=== PATIENT | male | born 1955 | race African-American/Black ===

== ENCOUNTER 2017-03-20 14:22 | Emergency (ER) | payer MEDICAID, OTHER ==
[~2017-03-20] VITALS: Ht 193 cm; Wt 74.8 kg
[~2017-03-20 14:22] MED LIST: ALPRAZOLAM0.5 MG PO; ASPIRIN EC325 MG ORAL; Aspirin ORAL; NKM; norvasc ORAL
[2017-03-20] MEDS ORDERED: Tetracaine 0.5% Opth 4ml Soln LEFT EYE ONE (14:45)
[2017-03-20] MEDS ORDERED: Fluorescein Strips LEFT EYE ONE (14:45)
[2017-03-20 15:05] VITALS: BP 135/72
--- NOTE | 2017-03-20 15:17 | Emergency Room Report ---
History of Present Illness General Chief Complaint: Eye Problems Source: Patient Present Illness HPI 61 YO Male presents to the ED C/O left eye irritation and increased lacrimation with fb scratching sensation causing 10/10 in severity pain x 2 days. pt. reports yesterday a fan blew dust/dirt into his eyes, and he was rubbing his eye and believes he may have scratched it. pt. reports later rinsing profusely with tap water multiple times yet still feels as though something is in his eye scratching. pt. denies visual changes, denies vision loss, floaters, flashing lights, swelling of the lid, or eye d/c. pt. reports increased tearing and photophobia. He denies contact lens use. Allergies: Coded Allergies: No Known Allergies (Unverified , 02/23/14) Patient History Past Medical History: see triage record Past Surgical History: none Pertinent Family History: none Immunizations: UTD Reviewed Nursing Documentation: PMH: Agreed, PSxH: Agreed Nursing Documentation-PMH Past Medical History: No History, Except For Hx Hypertension: Yes Hx Diabetes: Yes Review of Systems All Other Systems: negative except mentioned in HPI Physical Exam Vital Signs Date Time Temp Pulse Resp B/P (MAP) Pulse Ox O2 Delivery O2 Flow Rate FiO2 03/20/17 14:29 98.1 72 17 124/75 98 Room Air Sp02 EP Interpretation: reviewed, normal General Appearance: no apparent distress, alert, GCS 15, non-toxic Head: normocephalic, atraumatic Eyes: left eye fluoroscene uptake - linear increased uptake in the 8 o'clock position, bilateral eye normal inspection, bilateral eye PERRL, bilateral eye EOMI ENT: hearing grossly normal, normal pharynx, no angioedema, normal voice Neck: full range of motion, supple/symm/no masses Respiratory: chest non-tender, lungs clear, normal breath sounds, speaking full sentences Cardiovascular #1: regular rate, rhythm, no edema Cardiovascular #2: 2+ carotid (R), 2+ carotid (L), 2+ radial (R), 2+ radial (L) , 2+ dorsalis pedis (R), 2+ dorsalis pedis (L) Gastrointestinal: normal bowel sounds, non tender, soft, no guarding, no rebound Rectal: deferred Genitourinary: normal inspection, no CVA tenderness Musculoskeletal: back normal, gait/station normal, normal range of motion, non- tender, no calf tenderness Neurologic: alert, oriented x3, responsive, motor strength/tone normal, sensory intact, speech normal Psychiatric: judgement/insight normal, memory normal, mood/affect normal, no suicidal/homicidal ideation Reflexes: 4+ bicep (R), 4+ bicep (L), 4+ tricep (R), 4+ tricep (L), 4+ knee (R) , 4+ knee (L) Skin: normal color, no rash, warm/dry, well hydrated Lymphatic: no adenopathy Medical Decision Making PA Attestation Dr. Mackenzie is my supervising Physician whom patient management has been discussed with. Diagnostic Impression: Primary Impression: Corneal abrasion, left Qualified Codes: S05.02XA - Injury of conjunctiva and corneal abrasion without foreign body, left eye, initial encounter ER Course 61 YO Male presents to the ED C/O left eye irritation and increased lacrimation with fb scratching sensation causing 10/10 in severity pain x 2 days. pt. reports yesterday a fan blew dust/dirt into his eyes, and he was rubbing his eye and believes he may have scratched it. pt. reports later rinsing profusely with tap water multiple times yet still feels as though something is in his eye scratching. pt. denies visual changes, denies vision loss, floaters, flashing lights, swelling of the lid, or eye d/c. pt. reports increased tearing and photophobia. He denies contact lens use. - Pt denies contact lens use. Ddx considered but are not limited to: corneal abrasion, acute glaucoma, globe rupture, FB, Corneal Ulcer, conjunctivitis. Iridis Vital signs: are WNL, pt. is afebrile H&PE are most consistent with: corneal abrasion , no obvious fb's seen on lid flip examination. ORDERS: -Tetracaine and Fluorescein Stain of the Left eye: -Increase fluorescein uptake in a linear fashion in the 8 o'cloock position of the Left eye, there is no involvement of the iris or pupil. Negative Jarred sign. Pt. had positive relief of pain with tetracaine drops. there was negative evidence of Fb, deep ulcer, or rupture. ED INTERVENTIONS: none at this time. d/w pt. Opth fU in 48 hours. DISCHARGE: At this time pt. is stable for d/c to home. Will provide printed patient care instructions, and any necessary prescriptions. Care plan and follow up instructions have been discussed with the patient prior to discharge. . Last Vital Signs Date Time Temp Pulse Resp B/P (MAP) Pulse Ox O2 Delivery O2 Flow Rate FiO2 03/20/17 14:29 98.1 72 17 124/75 98 Room Air Disposition: HOME, SELF-CARE Condition: Stable Scripts Sod Borate/Boric AC/Water/NaCl (Eye Wash Irrigating Solution) 120 Ml Irrig.soln 118 ML OP ONCE, #118 ML Prov: Breann Walton 03/20/17 Diclofenac Sodium (DICLOFENAC SODIUM*) 2.5 Ml Drops 1 DROP LEFT EYE QID, #2.5 ML 0 Refills Prov: Breann Walton 03/20/17 Ofloxacin (OCUFLOX) 5 Ml Drops 1 DRP OP BID, #5 ML Prov: Breann Walton 03/20/17 Referrals: [facility],REFERRING (PCP) Patient Instructions: Corneal Abrasion Additional Instructions: Take medications as directed. Follow up with a Primary Care Provider in 48-72 hours, even if your symptoms have resolved. --Please review list of primary care clinics, if you do not already have a primary care provider Return sooner to ED if new symptoms occur, or current symptoms become worse. - Please note that this Emergency Department Report was dictated using [employer] vmware administrator technology software, occasionally this can lead to erroneous entry secondary to interpretation by the dictation equipment. Breann Walton Mar 20, 2017 15:17
[2017-03-20] MEDS ORDERED: DICLOFENAC SOD2.5 ML LEFT EYE (15:32)
[2017-03-20] MEDS ORDERED: EYE WASH IRRIG118 ML OP (15:32)
[2017-03-20] MEDS ORDERED: OCUFLOX5 ML OP (15:32)
[2017-03-20 17:39] VITALS: BP 135/72
== END 2017-03-20 17:00 | disposition home or self-care (01) ==
LOC: EMR 14:58
DX: T15.02XA Foreign body in cornea, left eye, initial encounter (principal); X58.XXXA Exposure to other specified factors, initial encounter; Y92.9 Unspecified place or not applicable; I10 Essential (primary) hypertension; E11.9 Type 2 diabetes mellitus without complications
CPT/HCPCS: 99284

== ENCOUNTER 2017-11-08 13:12 | Emergency (ER) | payer OTHER ==
[~2017-11-08] VITALS: Ht 193 cm; Wt 77.1 kg
[~2017-11-08 13:12] MED LIST changes: +DICLOFENAC SOD2.5 ML LEFT EYE; +EYE WASH IRRIG118 ML OP; +OCUFLOX5 ML OP
[2017-11-08 13:40] VITALS: BP 123/83
[2017-11-08] MEDS ORDERED: Isovue-300 100ml vial INJ PRN (14:00)
--- NOTE | 2017-11-08 14:09 | Emergency Room Report ---
History of Present Illness General Chief Complaint: Male Urogenital Problems Source: Patient Present Illness HPI pt is a 61 y.o. M with hx of BPH, on tamsulosin, low back pain, currently on daily dose of norco for the past 4 days, here c/o waking up this AM with dysuria and gross hematuria. pt denies n/v/d/c, sob cp, fever/chills. he also c/ o right lower quandrant pain, with no radiation, 12/25, denying flank pain and hx of renal stones. denies trauma, fall, erectile dysfunction. Allergies: Coded Allergies: No Known Allergies (Unverified , 02/23/14) Patient History Past Medical History: see triage record Past Surgical History: none Pertinent Family History: unable to obtain Immunizations: UTD Reviewed Nursing Documentation: PMH: Agreed; PSxH: Agreed Nursing Documentation-PMH Past Medical History: No History, Except For Hx Hypertension: Yes Hx Diabetes: Yes History Of Psychiatric Problem: Yes - ANXIETY Review of Systems All Other Systems: negative except mentioned in HPI Physical Exam Vital Signs Date Time Temp Pulse Resp B/P (MAP) Pulse Ox O2 Delivery O2 Flow Rate FiO2 11/08/17 13:29 98.3 70 16 123/83 99 Room Air 98.2 Sp02 EP Interpretation: reviewed General Appearance: alert, GCS 15, non-toxic, mild distress Head: normocephalic, atraumatic Eyes: bilateral eye normal inspection, bilateral eye PERRL ENT: normal ENT inspection, hearing grossly normal, normal pharynx Neck: normal inspection, full range of motion, supple Respiratory: normal inspection, chest non-tender, lungs clear, normal breath sounds, no rhonchi, no respiratory distress, no retraction, no accessory muscle use Cardiovascular #1: normal inspection, normal peripheral pulses, regular rate, rhythm, no edema, no gallop, no JVD, no murmur, no rub Cardiovascular #2: 2+ radial (R), 2+ radial (L) Gastrointestinal: normal bowel sounds, no mass, no organomegaly, no bruit, non- distended, no pulsatile mass, no rebound, guarding - right lower quadrant, other Medical Decision Making PA Attestation all orders, dx, tx plans were reviewed with my supervising physician Dr Reid Diagnostic Impression: Primary Impression: Pyelonephritis Additional Impression: Renal stone ER Course pt is a 61 y.o. M with hx of BPH, on tamsulosin, low back pain, currently on daily dose of norco for the past 4 days, here c/o waking up this AM with dysuria and gross hematuria. pt denies n/v/d/c, sob cp, fever/chills. he also c/ o right lower quandrant pain, with no radiation, 12/25, denying flank pain and hx of renal stones. denies trauma, fall, erectile dysfunction. Ddx considered but are not limited to pylonephritis, renal stone, bladder carcinoma Vital signs: are WNL, pt. is afebrile H&PE are most consistent with pyloneprhitis and renal stone ORDERS: CBC, UA, CMP, abd CT w/o contrast, toradol 30mg,IM , keflex 500mg qid x10d ED INTERVENTIONS: toradol 30mg IM , NS DISCHARGE: At this time pt. is stable for d/c to home. Will provide printed patient care instructions, and any necessary prescriptions. Care plan and follow up instructions have been discussed with the patient prior to discharge. UA blood 3+, Hgb 12, Hct38, urine protein 2+, 2+ leuk, AST and ALT 138-148 Lab Results Impression gross hematuria, mild anemia, elevated liver enzymes and pylonephritis CT/MRI/US Diagnostic Results CT/MRI/US Diagnostic Results : Imaging Test Ordered: CT abdomien and pelvis w/o contrast Impression CT ABDOMEN & PELVIS Without Contrast: 1. 6 mm hyperdense cyst versus nonobstructive stone in the mid left kidney ( series 6 image 51). Mild left perinephric stranding. No hydronephrosis or hydroureter. 2. Mild constipation. 3. Grade 1 anterolisthesis of L4 relative to L5 with 4 mm offset. 4. Grade 1 retrolisthesis of L5 relative to S1 with 5 mm offset. 5. Mild multilevel degenerative changes throughout the spine, most prominent at L5-S1. Last Vital Signs Date Time Temp Pulse Resp B/P (MAP) Pulse Ox O2 Delivery O2 Flow Rate FiO2 11/08/17 13:40 98.2 88 16 123/83 99 Room Air 98.2 Status: improved Disposition: HOME, SELF-CARE Condition: Stable Scripts Cephalexin* (KEFLEX*) 500 Mg Capsule 500 MG ORAL EVERY 6 HOURS for 10 Days, #40 CAP Prov: Saud Finch 11/08/17 Patient Instructions: Pyelonephritis, Adult, Renal Colic Additional Instructions: follow up with urologist and primary dr. take abx as directed. if fever/chills return to ED> Saud Finch Nov 08, 2017 14:09
[2017-11-08] MEDS ORDERED: Ketorolac 30mg Inj IM ONE (14:30)
[2017-11-08 14:37] LABS: APPEARANCE,URINE SLIGHTLY CLOUDY; BILIRUBIN, URINE NEGATIVE (NEGATIVE); GLUCOSE, URINE (UA) NEGATIVE (NEGATIVE); KETONES,URINE NEGATIVE (NEGATIVE); LEUKOCYTE ESTERASE ,URINE 2+ (NEGATIVE); PH,URINE 6 (4.5-8.0); PROTEIN,URINE 2+ (NEGATIVE); UROBILINOGEN,URINE 4 MG/DL (0.0-1.0)
[2017-11-08 14:40] LABS: BASOPHILS % (AUTO) 0.7 % (0.0-2.0); EOSINOPHILS % (AUTO) 0.4 % (0.0-3.0); HEMATOCRIT 38.1 % (42.0-52.0); HEMOGLOBIN 12.8 G/DL (14.2-18.0); LYMPHOCYTES % (AUTO) 22.9 % (20.0-45.0); MEAN CORPUSCULAR VOLUME 93 FL (80-99); MONOCYTES % (AUTO) 15.1 % (1.0-10.0); NEUTROPHILS % (AUTO) 60.9 % (45.0-75.0); PLATELET COUNT 145 K/UL (150-450); RED BLOOD COUNT 4.09 M/UL (4.70-6.10); RED CELL DISTRIBUTION WIDTH 11.1 % (11.6-14.8)
[2017-11-08 14:43] LABS: ANION GAP 6 mmol/L (5-15); BLOOD UREA NITROGEN 9 mg/dL (7-18); CALCIUM 8.8 MG/DL (8.5-10.1); CARBON DIOXIDE 30 MMOL/L (21-32); CHLORIDE 98 MMOL/L (98-107); POTASSIUM 4.1 MMOL/L (3.5-5.1); SODIUM 133 MMOL/L (136-145)
[2017-11-08 14:49] LABS: COLOR,URINE RED; NITRITE,URINE NEGATIVE (NEGATIVE)
[2017-11-08 14:53] LABS: ALANINE AMINOTRANSFERASE 138 U/L (12-78); ALBUMIN 3.2 G/DL (3.4-5.0); ALBUMIN/GLOBULIN RATIO 0.7 (1.0-2.7); ALKALINE PHOSPHATASE 105 U/L (46-116); ASPARTATE AMINO TRANSFERASE 137 U/L (15-37); BILIRUBIN,TOTAL 1.9 MG/DL (0.2-1.0)
[2017-11-08] MEDS ORDERED: CEPHALEXIN500 MG ORAL (15:29)
[2017-11-08 15:41] VITALS: BP 123/83
--- NOTE | 2017-11-09 17:07 | Diagnostic Imaging Report ---
Indication: Abdominal pain Technique: Spiral acquisitions obtained through the abdomen and pelvis. No oral contrast utilized, per emergency room physician request No IV contrast utilized, per referring physician request.. Multiplanar reconstructions were generated. Total dose length product 549.55 mGycm. CTDIvol(s) 11.19 mGy. Dose reduction achieved using automated exposure control Comparison: None Findings: No evidence of diverticulosis or diverticulitis. The appendix is normal. No small bowel distention. No free or loculated intraperitoneal air or fluid. Distal esophagus, stomach, duodenum are unremarkable. Lack of IV contrast limits assessment of the solid organs. The liver is grossly unremarkable. The gallbladder is unremarkable. There is mild ectasia of the common hepatic duct, which measures up to 9 mm in diameter, as well as central intrahepatic biliary ductal dilatation, but no downstream obstructive lesion is identified. The pancreas, spleen, adrenals are all unremarkable. Area of probable tubular calcification hyperdense cyst is seen in the central portion of the left kidney. The kidneys are otherwise unremarkable. No retroperitoneal or mesenteric mass or adenopathy. No pelvic mass or adenopathy. The bladder is equivocally mildly thick-walled, probably an artifact of under distention. The lung bases demonstrate some scarring bilaterally. The bones demonstrate mild degenerative spondylosis changes. Impression: Ectatic bile ducts, without definite downstream obstructive lesion. Correlate with liver function tests No definite acute or significant abnormality Equivocally mildly thick-walled bladder, probably an artifact of under distention Degenerative spondylosis Left renal hyperdense cyst versus focus of tubular calcification This agrees with the preliminary interpretation provided overnight by [facility] teleradiology service. The CT scanner at [facility] is accredited by the [employer] and the scans are performed using protocols designed to limit radiation exposure to as low as reasonably achievable to attain images of sufficient resolution adequate for diagnostic evaluation.
== END 2017-11-08 16:30 | disposition home or self-care (01) ==
LOC: EMR 16:26
DX: N12 Tubulo-interstitial nephritis, not specified as acute or chronic (principal); N20.0 Calculus of kidney; R31.0 Gross hematuria; I10 Essential (primary) hypertension; E11.9 Type 2 diabetes mellitus without complications; F41.9 Anxiety disorder, unspecified
CPT/HCPCS: 36415; 74176; 80053; 81003; 82248; 83690; 85025; 96372; 99284; J1885

== ENCOUNTER 2019-10-04 11:11 | Emergency (ER) | payer OTHER ==
[~2019-10-04] VITALS: Ht 193 cm; Wt 77.1 kg
[~2019-10-04 11:11] MED LIST changes: +CEPHALEXIN500 MG ORAL
--- NOTE | 2019-10-04 11:15 | NUR ---
ED Nurse Note: Pt ambulated to ed c/o right lower qudarant pain radiating to lower back x 1 week. pt states that he does drink a lot of alcohol. pt denies nausea, vomiting, diarrhea. pt right lower quadrant abdomen tender to touch.
[2019-10-04] MEDS ORDERED: Morphine Sulfate 2mg/ml Inj(IV/IM USE ONLY) ONE (11:36)
--- NOTE | 2019-10-04 11:40 | Emergency Room Report ---
History of Present Illness General Chief Complaint: Abdominal Pain Source: Patient Present Illness HPI 63-year-old male presents the ED complaining of abdominal pain. Started 10 days ago. Pain is right lower quadrant. 10 out of 10, sharp, radiating to back. Denies chest pain or shortness of breath. Denies diarrhea. Notes nausea , denies vomiting. No other aggravating relieving factors. Denies any other associated symptoms Allergies: Coded Allergies: No Known Allergies (Unverified , 02/23/14) COVID-19 Screening Contact w/high risk pt: No Recent Travel to affected area: No Experienced COVID-19 symptoms?: No COVID-19 Testing performed MACHINE COREMAKER: No Patient History Past Medical History: DM, HTN Past Surgical History: none Pertinent Family History: none Social History: Denies: smoking, alcohol use, drug use Immunizations: UTD Reviewed Nursing Documentation: PMH: Agreed; PSxH: Agreed Nursing Documentation-PMH Hx Hypertension: Yes Hx Diabetes: Yes Review of Systems All Other Systems: negative except mentioned in HPI Physical Exam Vital Signs Date Time Temp Pulse Resp B/P (MAP) Pulse Ox O2 Delivery O2 Flow Rate FiO2 10/04/19 11:14 98.1 74 18 117/82 (94) 99 Room Air Sp02 EP Interpretation: reviewed, normal General Appearance: no apparent distress, alert, GCS 15, non-toxic Head: normocephalic, atraumatic Eyes: bilateral eye normal inspection, bilateral eye PERRL ENT: hearing grossly normal, normal pharynx, no angioedema, normal voice Neck: full range of motion, supple/symm/no masses Respiratory: chest non-tender, lungs clear, normal breath sounds, speaking full sentences Cardiovascular #1: regular rate, rhythm, no edema Cardiovascular #2: 2+ carotid (R), 2+ carotid (L), 2+ radial (R), 2+ radial (L) , 2+ dorsalis pedis (R), 2+ dorsalis pedis (L) Gastrointestinal: normal bowel sounds, soft, non-distended, no guarding, no rebound, tenderness Rectal: deferred Genitourinary: normal inspection, no CVA tenderness Musculoskeletal: back normal, normal range of motion, gait/station normal, non- tender Neurologic: alert, motor strength/tone normal, oriented x3, sensory intact, responsive, speech normal Psychiatric: judgement/insight normal, memory normal, mood/affect normal, no suicidal/homicidal ideation Reflexes: 3+ bicep (R), 3+ bicep (L), 3+ tricep (R), 3+ tricep (L), 3+ knee (R) , 3+ knee (L) Lymphatic: no adenopathy Medical Decision Making Diagnostic Impression: Primary Impression: Abdominal pain Qualified Codes: R10.33 - Periumbilical pain ER Course Hospital Course 63-year-old M presents to ED with abdominal pain Differential diagnosis includes-appendicitis, cholecystitis, small bowel obstruction, gastritis, Clinical course Patient placed on stretcher. After initial history and physical I ordered labs , IV fluids, pain medications and CT scan Labs - no leukocytosis, LFTs mildly elevated, electrolytes ok CT AP- INTRAHEPATIC AND EXTRAHEPATIC BILIARY DILATATION AND ALSO PROMINENCE OF THE PANCREATIC DUCT DOWN TO THE HEAD OF THE PANCREAS. NO DISCRETE OBSTRUCTING STONE OR MASS DEFINABLE. IF THERE IS LABORATORY FINDINGS SUGGESTIVE OF BILIARY OBSTRUCTION, CONSIDER CORRELATION WITH ENDOSCOPY TO EXCLUDE AN AMPULLARY LESION. NO SIGN OF OBSTRUCTION OR FREE AIR. APPENDIX PARTIALLY VISUALIZED AND NORMAL CALIBER. Upon reassessment, patient states pain has improved. There is also significant fecal impaction noted. Discussed findings with patient. I explained that this could be findings concerning for cancer. Patient states he does drink daily. Did offer option for admission but patient states he would rather be discharged. Given copies of his CT report. States he will follow-up with his PMD. I feel this is a highly complex case requiring extensive working including EKG/ Rhythm strip, Xray/CT/US, Blood/urine lab work, repeat exams while in ED, and administration of strong opiates/narcotics for pain control, admission to hospital or close patient follow up. Diagnosis - abdominal pain Stable and discharged to home with Rx Colace. Followup with PMD. Return to ED if symptoms recur or worsen Labs Test 10/04/19 11:30 White Blood Count 5.3 K/UL (4.8-10.8) Red Blood Count 4.21 M/UL (4.70-6.10) Hemoglobin 13.4 G/DL (14.2-18.0) Hematocrit 38.0 % (42.0-52.0) Mean Corpuscular Volume 90 FL (80-99) Mean Corpuscular Hemoglobin 31.8 PG (27.0-31.0) Mean Corpuscular Hemoglobin Concent 35.2 G/DL (32.0-36.0) Red Cell Distribution Width 11.0 % (11.6-14.8) Platelet Count 112 K/UL (150-450) Mean Platelet Volume 7.5 FL (6.5-10.1) Neutrophils (%) (Auto) 44.2 % (45.0-75.0) Lymphocytes (%) (Auto) 39.6 % (20.0-45.0) Monocytes (%) (Auto) 9.5 % (1.0-10.0) Eosinophils (%) (Auto) 4.8 % (0.0-3.0) Basophils (%) (Auto) 2.0 % (0.0-2.0) Urine Color Yellow Urine Appearance Clear Urine pH 6 (4.5-8.0) Urine Specific Follett 1.015 (1.005-1.035) Urine Protein Negative (NEGATIVE) Urine Glucose (UA) Negative (NEGATIVE) Urine Ketones Negative (NEGATIVE) Urine Blood Negative (NEGATIVE) Urine Nitrite Negative (NEGATIVE) Urine Bilirubin Negative (NEGATIVE) Urine Urobilinogen 1 MG/DL (0.0-1.0) Urine Leukocyte Esterase Negative (NEGATIVE) Sodium Level 138 MMOL/L (136-145) Potassium Level 3.9 MMOL/L (3.5-5.1) Chloride Level 102 MMOL/L (98-107) Carbon Dioxide Level 24 MMOL/L (21-32) Anion Gap 12 mmol/L (5-15) Blood Urea Nitrogen 21 mg/dL (7-18) Creatinine 1.1 MG/DL (0.55-1.30) Estimat Glomerular Filtration Rate > 60 mL/min (>60) Glucose Level 103 MG/DL (74-106) Calcium Level 9.2 MG/DL (8.5-10.1) Total Bilirubin 0.9 MG/DL (0.2-1.0) Aspartate Amino Transf (AST/SGOT) 254 U/L (15-37) Alanine Aminotransferase (ALT/SGPT) 227 U/L (12-78) Alkaline Phosphatase 130 U/L (46-116) Total Protein 7.5 G/DL (6.4-8.2) Albumin 3.3 G/DL (3.4-5.0) Globulin 4.2 g/dL Albumin/Globulin Ratio 0.8 (1.0-2.7) Lipase 154 U/L (73-393) Urine Opiates Screen Negative (NEGATIVE) Urine Barbiturates Screen Negative (NEGATIVE) Phencyclidine (PCP) Screen Negative (NEGATIVE) Urine Amphetamines Screen Negative (NEGATIVE) Urine Benzodiazepines Screen Negative (NEGATIVE) Urine Cocaine Screen Negative (NEGATIVE) Urine Marijuana (THC) Screen Negative (NEGATIVE) CT/MRI/US Diagnostic Results CT/MRI/US Diagnostic Results : Imaging Test Ordered: CT A/P Impression FINDINGS: There is lateral right basilar scarring. The liver and spleen are homogeneous. There is mild intrahepatic biliary prominence. Gallbladder is without sludge or stone. There is slight prominence of the extrahepatic ducts down to the head of the pancreas. Some prominence of the pancreatic duct also noted. Pancreas itself shows homogeneous enhancement. Adrenals are normal in morphology. There is a small left renal cyst. No hydronephrosis or stone bilaterally. Small bowel loops are nondistended. Increased lucencies noted throughout the colon. The appendix is partially visualized and appears normal caliber. There is no free fluid or free air. No pathologic adenopathy demonstrated. Urinary bladder appears unremarkable. Degenerative changes of the lumbar spine noted. IMPRESSION: INTRAHEPATIC AND EXTRAHEPATIC BILIARY DILATATION AND ALSO PROMINENCE OF THE PANCREATIC DUCT DOWN TO THE HEAD OF THE PANCREAS. NO DISCRETE OBSTRUCTING STONE OR MASS DEFINABLE. IF THERE IS LABORATORY FINDINGS SUGGESTIVE OF BILIARY OBSTRUCTION, CONSIDER CORRELATION WITH ENDOSCOPY TO EXCLUDE AN AMPULLARY LESION. NO SIGN OF OBSTRUCTION OR FREE AIR. Last Vital Signs Date Time Temp Pulse Resp B/P (MAP) Pulse Ox O2 Delivery O2 Flow Rate FiO2 10/04/19 11:14 98.1 74 18 117/82 (94) 99 Room Air Status: improved Disposition: HOME, SELF-CARE Condition: Stable Scripts Docusate Sodium* (COLACE*) 100 Mg Capsule 100 MG ORAL THREE TIMES A DAY, #30 CAP Prov: Darío Lee MD 10/04/19 Darío Lee MD October 04, 2019 11:40
[2019-10-04] MEDS ORDERED: Omnipaque-300 100ml vial INJ PRN (11:45)
[2019-10-04] MEDS ORDERED: Morphine Sulfate 4mg/ml Inj (IV USE ONLY) IVP ONE (11:45)
[2019-10-04 11:47] VITALS: BP 117/82
--- NOTE | 2019-10-04 11:49 | NUR ---
ED Nurse Note: IV site etablished, patent and intact. blood and urine specimen sent to lab
[2019-10-04 11:52] LABS: EOSINOPHILS % (AUTO) 4.8 % (0.0-3.0); HEMOGLOBIN 13.4 G/DL (14.2-18.0); LYMPHOCYTES % (AUTO) 39.6 % (20.0-45.0); MEAN CORPUSCULAR VOLUME 90 FL (80-99); MONOCYTES % (AUTO) 9.5 % (1.0-10.0); NEUTROPHILS % (AUTO) 44.2 % (45.0-75.0); PLATELET COUNT 112 K/UL (150-450); RED BLOOD COUNT 4.21 M/UL (4.70-6.10); WHITE BLOOD COUNT 5.3 K/UL (4.8-10.8)
[2019-10-04 12:33] LABS: APPEARANCE,URINE CLEAR; BILIRUBIN, URINE NEGATIVE (NEGATIVE); GLUCOSE, URINE (UA) NEGATIVE (NEGATIVE); KETONES,URINE NEGATIVE (NEGATIVE); LEUKOCYTE ESTERASE ,URINE NEGATIVE (NEGATIVE); NITRITE,URINE NEGATIVE (NEGATIVE); PH,URINE 6 (4.5-8.0); PROTEIN,URINE NEGATIVE (NEGATIVE); UROBILINOGEN,URINE 1 MG/DL (0.0-1.0)
[2019-10-04 12:38] LABS: ANION GAP 12 mmol/L (5-15); BLOOD UREA NITROGEN 21 mg/dL (7-18); CALCIUM 9.2 MG/DL (8.5-10.1); CARBON DIOXIDE 24 MMOL/L (21-32); CHLORIDE 102 MMOL/L (98-107); CREATININE 1.1 MG/DL (0.55-1.30); POTASSIUM 3.9 MMOL/L (3.5-5.1); SODIUM 138 MMOL/L (136-145)
[2019-10-04 12:41] LABS: COLOR,URINE YELLOW
[2019-10-04 12:43] LABS: ALANINE AMINOTRANSFERASE 227 U/L (12-78); ALBUMIN 3.3 G/DL (3.4-5.0); ALBUMIN/GLOBULIN RATIO 0.8 (1.0-2.7); ALKALINE PHOSPHATASE 130 U/L (46-116); ASPARTATE AMINO TRANSFERASE 254 U/L (15-37); BILIRUBIN,TOTAL 0.9 MG/DL (0.2-1.0)
--- NOTE | 2019-10-04 12:59 | NUR ---
ED Nurse Note: PT taken to CT on ari
[2019-10-04 13:00] VITALS: BP 131/88
--- NOTE | 2019-10-04 13:22 | NUR ---
ED Nurse Note: Pt returned from CT
--- NOTE | 2019-10-04 14:04 | Diagnostic Imaging Report ---
EXAM: CT CT Abdomen Pelvis w/Contrast INDICATION: Reason For Exam: ABD PAIN. COMPARISON: None TECHNIQUE: Axial images were obtained through the abdomen pelvis with intravenous contrast. Sagittal and coronal reformats are generated. All CT scans at this facility are performed using dose modulation techniques as appropriate to a performed exam including the following: automated exposure control with adjustment of the mA and/or kV according to patient size. RADIATION DOSE: CTDIvol: 3.8 mGy DLP: 186.5 mGy-cm Dose information generated by the CT scanner is available in PACS. FINDINGS: There is lateral right basilar scarring. The liver and spleen are homogeneous. There is mild intrahepatic biliary prominence. Gallbladder is without sludge or stone. There is slight prominence of the extrahepatic ducts down to the head of the pancreas. Some prominence of the pancreatic duct also noted. Pancreas itself shows homogeneous enhancement. Adrenals are normal in morphology. There is a small left renal cyst. No hydronephrosis or stone bilaterally. Small bowel loops are nondistended. Increased lucencies noted throughout the colon. The appendix is partially visualized and appears normal caliber. There is no free fluid or free air. No pathologic adenopathy demonstrated. Urinary bladder appears unremarkable. Degenerative changes of the lumbar spine noted. IMPRESSION: INTRAHEPATIC AND EXTRAHEPATIC BILIARY DILATATION AND ALSO PROMINENCE OF THE PANCREATIC DUCT DOWN TO THE HEAD OF THE PANCREAS. NO DISCRETE OBSTRUCTING STONE OR MASS DEFINABLE. IF THERE IS LABORATORY FINDINGS SUGGESTIVE OF BILIARY OBSTRUCTION, CONSIDER CORRELATION WITH ENDOSCOPY TO EXCLUDE AN AMPULLARY LESION. NO SIGN OF OBSTRUCTION OR FREE AIR. APPENDIX PARTIALLY VISUALIZED AND NORMAL CALIBER.
[2019-10-04 14:21] VITALS: BP 133/89
--- NOTE | 2019-10-04 14:22 | NUR ---
ER DISCHARGE NOTE: Patient is cleared to be discharged per ERMD, pt is aox4, on room air, with stable vital signs. pt was given dc and prescription instructions, pt was able to verbalize understanding, pt id band and iv site removed without complications. pt is able to ambulate with steady gait. pt took all belongings.
[2019-10-04] MEDS ORDERED: COLACE100 MG ORAL (14:28)
== END 2019-10-04 14:22 | disposition home or self-care (01) ==
LOC: EMR 11:39
DX: R10.33 Periumbilical pain (principal); R11.0 Nausea; E11.9 Type 2 diabetes mellitus without complications; I10 Essential (primary) hypertension
CPT/HCPCS: 36415; 74177; 80053; 80307; 81003; 83690; 85025; 96374; J2270; J7040; Q9967; Z7502; 99284